=== PATIENT | female | born 1965 | race African-American/Black ===

== ENCOUNTER 2019-01-10 21:33 | Inpatient (IN) | payer BC ==
[~2019-01-10] VITALS: Ht 170.2 cm; Wt 95.0 kg
[2019-01-10] MEDS ORDERED: LISINOPRIL10 MG PO (21:48)
[2019-01-10] MEDS ORDERED: BP MED (21:48)
[2019-01-10] MEDS ORDERED: PROTONIX20 MG (21:48)
[2019-01-10] MEDS ORDERED: NORVASC2.5 MG (21:48)
[2019-01-10] MEDS ORDERED: CARAFATE1 G (21:48)
[2019-01-11] VITALS (26 sets, daily range): BP systolic 100–177; BP diastolic 51–100; Ht 170.2 cm; Wt 95.0 kg
[2019-01-11 00:34] LABS: HEMATOCRIT 23.5 % (36.0-48.0)
[2019-01-11 00:39] LABS: HEMOGLOBIN 7.5 g/dL (12-16)
--- NOTE | 2019-01-11 01:15 | NUR ---
BLOOD STARTED BY GREER ACOSTA.
--- NOTE | 2019-01-11 01:25 | NUR ---
PT ARRIVED FROM ED VIA WHEELCHAIR. VSS. DENIES PAIN, NAUSEA. BILATERAL PIV WITH PRBC INFUSING. TRANSFERRED TO BED WITH ASSISTANCE.
--- NOTE | 2019-01-11 03:31 | NUR ---
REASSESSMENT COMPLETED PER FLOW SHEET, SEE FOR DETAILS. DENIES NEEDS. CALM AND WATCHING TV. WILL CONTINUE TO MONITOR.
--- NOTE | 2019-01-11 04:09 | NUR ---
CALLED AND SPOKE TO FLORENCIO FROM LABORATORY TO INFORM HER OF ORDERS TO DRAW BLOOD FOR AM LABS, SHE STATED SHE WOULD GET SOMEONE TO COME UP TO UNIT.
--- NOTE | 2019-01-11 05:00 | NUR ---
RESTING, DENIES NEEDS, CALL LIGHT WITHIN REACH. WILL CONTINUE TO MONITOR.
--- NOTE | 2019-01-11 05:40 | NUR ---
BLOOD HAS STILL NOT BEEN DRAWN FOR AM LABS, CALLED LABORATORY, NO ANSWER. WILL TRY AGAIN.
--- NOTE | 2019-01-11 06:07 | NUR ---
SPOKE TO FLORENCIO FROM LABORATORY INFORMED HER THAT NO ONE HAS COME UP TO DRAW PATIENT'S BLOOD, SHE STATED SHE WILL GET SOMEONE TO COME UP TO DRAW BLOOD.
--- NOTE | 2019-01-11 06:19 | NUR ---
LABORATORY PERSONNEL HERE TO DRAW BLOOD.
[2019-01-11 06:35] LABS: BASOPHILS 0.2 % (0-2); EOSINOPHILS 0.6 % (0-7); HEMATOCRIT 25.7 % (36.0-48.0); HEMOGLOBIN 8.2 g/dL (12-16); IMMATURE GRANULOCYTES 0.6 % (0-5); LYMPHOCYTES 33.7 % (15-50); MCH 25.2 pg (26.0-34.0); MCHC 31.9 g/dL (31.0-37.0); MCV 78.8 fL (80.0-100.0); MEAN PLATELET VOLUME 9.9 fL (7.4-10.4); MONOCYTES 7.3 % (2-11); NEUTROPHILS 57.6 % (40-80); PLATELET COUNT 330 10x3/uL (130-400); RBC 3.26 10x6/uL (4.00-5.40); RDW 17.6 % (11.5-14.5); WBC 12.2 10x3/uL (4.8-10.8)
[2019-01-11 06:48] LABS: CALC OSMOLALITY 283 mosm/kg (275-300); CALCIUM 7.9 mg/dL (8.5-10.1); CARBON DIOXIDE 26.9 mmol/L (21.0-32.0); CHLORIDE - SERUM 108 mmol/L (98-107); CREATININE - SERUM 0.7 mg/dL (0.6-1.3); GLUCOSE 102 mg/dL (74-106); SODIUM 143 mmol/L (136-145); UREA NITROGEN 9 mg/dL (7-18); eGFR NON AFRICAN AMERICAN > 90 mL/min (90-120)
[2019-01-11 06:55] LABS: POTASSIUM - SERUM 2.9 mmol/L (3.5-5.1)
--- NOTE | 2019-01-11 07:07 | NUR ---
DR. GALICIA RETURNED CALL, NEW ORDERS RECEIVED. SEE ORDERS FOR DETAILS. INFORMED DAY SHIFT NURSE OF NEW ORDERS.
[2019-01-11 08:07] LABS: APTT 26.3 SECONDS (22.8-39.4); INR 1.14 (0.85-1.17); PROTIME 14.1 SECONDS (11.6-15.0)
[2019-01-11 08:40] LABS: APPEARANCE CLEAR (CLEAR); BILIRUBIN NEGATIVE (NEGATIVE); COLOR YELLOW (YELLOW); GLUCOSE NEGATIVE (NEGATIVE); KETONE NEGATIVE (NEGATIVE); NITRITE NEGATIVE (NEGATIVE); PROTEIN NEGATIVE (NEGATIVE); SPECIFIC GRAVITY 1.015 (1.005-1.020); UROBILINOGEN NORMAL (NORMAL)
--- NOTE | 2019-01-11 09:12 | NUR ---
0700 PT RECIEVED ALERT AND ORIENTED VSS HR SINUS 55-60S, ON ROOM AIR, PIV SL TO RFA, PIV TO LUE WITH PROTONIX GTT AND NS INFUSING PER ORDERS, ABD SOFT, NONTENDER, NO BM AT THIS TIME, CONTINENT, AWAITING PRBCS FROM LAB,CALL LIGHT WITHIN REACH 0800 DR GALICIA IN UNIT SPOKE WITH PT REGUARDING EGD AND CARE, KCL INITIATED PER PROTOCOL, DR GALICIA AWARE OF K LEVEL 0830 PRBCS INITATED RUNNING SLOWLY PER DR GALICIA 0900 CONSENTS FOR EGD WITH TIVA SIGNED BY PT, DENIES ANY NEEDS AT THIS TIME, NO SIGNS OF TRANSFUSION REACTION
--- NOTE | 2019-01-11 11:53 | NUR ---
SECOND UNIT PRBCS INITIATED
--- NOTE | 2019-01-11 13:18 | MORECARE ---
CASE MANAGEMENT DISCHARGE SUMMARY PATIENT: EDMAR JOHNSON UNIT: [id number] ADM DATE: 01/10/19 AGE: 53 : 69 SEX: F [facility] AUTHOR: MOLLY,DOC PHYSICIAN: REFERRING PHYSICIAN: JUDY HARKINS MD DATE OF SERVICE: 01/11/19 Discharge Plan Patient Name: EDMAR JOHNSON Facility: [facility]:[place] : 1965 Planned Disposition: Home Anticipated Discharge Date: Discharge Date: Expected LOS: Initial Reviewer: [email or web address] Initial Review Date: 01/11/2019 Generated: 01/11/19 2:18 pm Comments DCP- Discharge Planning Updated by [email or web address]: Farrah Renee on 01/11/19 12:[address] Patient Name: EDMAR JOHNSON Admission Status: ER Accout number: [id number] Admission Date: 01-10-2019 : 1965 Admission Diagnosis: Attending: JUDY HARKINS Current LOS: 1 Anticipated DC Date: Planned Disposition: Home Primary Insurance: [employer] [place] PPO Discharge Planning Comments: CM met with patient at bedside. Patient states she lives at home with her and plans to return to their home upon discharge. Patient denies any discharge needs at this time. CM will continue to follow and assist as needed with discharge planning / needs. Horse Racer: Farrah Renee DCPIA - Discharge Planning Initial Assessment Updated by [email or web address]: Farrah Renee on 01/11/19 1:12 pm * Is the patient Alert and Oriented? Yes * How many steps to enter\exit or inside your home? * PCP DR. GEOFFREY ELISE * Pharmacy [facility] * Preadmission Environment Home with Family * ADLs Independent * Equipment None * List name and contact numbers for known caregivers / representatives who currently or will assist patient after discharge: REJI JOHNSON -- [phone] * Verbal permission to speak to the caregivers and representatives has been obtained from the patient. N/A * Community resources currently utilized None * Additional services required to return to the preadmission environment? No * Can the patient safely return to the preadmission environment? Yes * Has this patient been hospitalized within the prior 30 days at any hospital? No Patient Name: EDMAR JOHNSON Page [id number] at 1318 All edits/amendments must be made on the electronic document DICTATION DATE: 01/11/191317 AUTO BRAKE TECHNICIAN: EMMETT 01/11/191317 RPT#: [id number] DC DATE: STATUS: ADM IN [facility] [address] [place] [address] END OF REPORT
--- NOTE | 2019-01-11 13:26 | NUR ---
GI LAB STAFF HERE FOR EGD, PREOP MEDS GIVEN
--- NOTE | 2019-01-11 15:16 | NUR ---
SPOKE WITH PHARMACY FOR JACKY
--- NOTE | 2019-01-11 16:34 | NUR ---
DR WATERS PAGED AFTER PT NOTED TO HAVE BM WITH SMALL AMOUNT OF BRIGHT RED BLOOD AND ABD DISCOMFORT, ORDERS FOR [place]LANTA, BATH AND LINEN CHANGE DONE, WILL CONTINUE TO MONITOR
--- NOTE | 2019-01-11 17:14 | NUR ---
ATE 50% CLEAR LIQUID TRAY
--- NOTE | 2019-01-11 17:48 | NUR ---
DESPITE MUCH ENCOURAGEMENT PT HAS DRANK ONE GLASS OF GOLYTELY, ENCOURAGED AND IMPORTANCE OF MED EXPLAINED AND PT STATED "ILL DRINK WHAT I WANT AND ITLL HAVE TO DO BECAUSE ITS NASTY"
[2019-01-11 17:51] LABS: HEMATOCRIT 32.6 % (36.0-48.0); HEMOGLOBIN 10.7 g/dL (12-16)
--- NOTE | 2019-01-11 18:49 | NUR ---
DR WATERS NOTIFIED OF H&H AND THAT WITH GOLYTLY SHE HAS HAD SMALL AMOUNT OF BLOOD IN STOOL, OKAYED WITH NO NEW ORDERS
[2019-01-12 01:00] VITALS: BP 154/89
[2019-01-12 01:08] LABS: HEMATOCRIT 31.7 % (36.0-48.0); HEMOGLOBIN 10.5 g/dL (12-16)
[2019-01-12 02:01] VITALS: BP 130/74
[2019-01-12 06:06] LABS: BASOPHILS 0.3 % (0-2); EOSINOPHILS 1.1 % (0-7); HEMATOCRIT 31.5 % (36.0-48.0); HEMOGLOBIN 10.4 g/dL (12-16); IMMATURE GRANULOCYTES 0.6 % (0-5); LYMPHOCYTES 31.1 % (15-50); MCH 26.1 pg (26.0-34.0); MCV 79.1 fL (80.0-100.0); MEAN PLATELET VOLUME 10.1 fL (7.4-10.4); MONOCYTES 8.7 % (2-11); NEUTROPHILS 58.2 % (40-80); PLATELET COUNT 324 10x3/uL (130-400); RDW 17.1 % (11.5-14.5); WBC 10.5 10x3/uL (4.8-10.8)
[2019-01-12 06:15] LABS: RBC 3.98 10x6/uL (4.00-5.40)
[2019-01-12 06:18] VITALS: BP 129/79
[2019-01-12 06:18] LABS: CALC OSMOLALITY 277 mosm/kg (275-300); CALCIUM 7.7 mg/dL (8.5-10.1); CARBON DIOXIDE 23.6 mmol/L (21.0-32.0); CHLORIDE - SERUM 107 mmol/L (98-107); CREATININE - SERUM 0.5 mg/dL (0.6-1.3); GLUCOSE 95 mg/dL (74-106); POTASSIUM - SERUM 3.1 mmol/L (3.5-5.1); SODIUM 141 mmol/L (136-145); UREA NITROGEN 4 mg/dL (7-18)
[2019-01-12 06:19] LABS: eGFR NON AFRICAN AMERICAN > 90 mL/min (90-120)
[2019-01-12 07:00] VITALS: BP 139/59
[2019-01-12 10:26] LABS: HEMATOCRIT 31.7 % (36.0-48.0); HEMOGLOBIN 10.5 g/dL (12-16)
[2019-01-12 11:00] VITALS: BP 158/94
--- NOTE | 2019-01-12 11:18 | NUR ---
Nutrition Follow Up: Chart reviewed Diet: Clear Liquid BM: 01/12/19 Wt loss noted I>O Labs and meds reviewed Rec advancing PAIGE as medically feasible. RD following.
--- NOTE | 2019-01-12 12:39 | NUR ---
TRANSFERRED TO ROOM 1204 VIA WHEELCHAIR.
[2019-01-12] MEDS ORDERED: LOPRESSOR25 MG PO (12:56)
--- NOTE | 2019-01-12 13:45 | NUR ---
SWELLING NOTED TO IV TO LEFT UPPER ARM. SL TO R FA PATENT WITH BRUISING NOTED AROUND INSERTION SITE. IVF SWITCHED TO R FA SL. IV TO L UPPER ARM REMOVED. CATHETER TIP INTACT. AWAITING COLONOSCOPY LATER TODAY. FAMILY AT BEDSIDE. DENIES ANY NEEDS AT THIS TIME.
--- NOTE | 2019-01-12 15:30 | NUR ---
OFF FLOOR TO GI LAB VIA BED.
--- NOTE | 2019-01-12 17:20 | NUR ---
RETURNED TO ROOM FROM GI LAB. IV TO L HAND PATENT. VSS. DENIES ANY NEEDS AT THIS TIME.
--- NOTE | 2019-01-12 21:00 | NUR ---
PT SITTING UP IN BED, NO SIGNS OF DISTRESS. ALERT AND ORIENTED. IV LEFT HAND INFUSING NS @ 50. NO REDNESS OR SWELLING AT INSERTION SITE, DRESSING CDI. DENIES NEEDS OR COMPLAINTS AT THIS TIME. CL IN REACH,WILL CONT TO MONITOR
[2019-01-12 21:14] VITALS: BP 160/99
[2019-01-13] VITALS: BP 155/87
[2019-01-13 04:00] VITALS: BP 143/82
[2019-01-13 06:46] LABS: BASOPHILS 0.2 % (0-2); EOSINOPHILS 1.5 % (0-7); HEMOGLOBIN 10.6 g/dL (12-16); IMMATURE GRANULOCYTES 0.4 % (0-5); LYMPHOCYTES 27.7 % (15-50); MCH 26.3 pg (26.0-34.0); MCHC 33.1 g/dL (31.0-37.0); MCV 79.4 fL (80.0-100.0); MEAN PLATELET VOLUME 9.8 fL (7.4-10.4); MONOCYTES 9.2 % (2-11); RBC 4.03 10x6/uL (4.00-5.40); RDW 17.2 % (11.5-14.5); WBC 9.1 10x3/uL (4.8-10.8)
[2019-01-13 06:55] LABS: PLATELET COUNT 399 10x3/uL (130-400)
[2019-01-13 07:07] LABS: CALC OSMOLALITY 274 mosm/kg (275-300); CALCIUM 8.2 mg/dL (8.5-10.1); CARBON DIOXIDE 25.3 mmol/L (21.0-32.0); CHLORIDE - SERUM 104 mmol/L (98-107); GLUCOSE 101 mg/dL (74-106); SODIUM 139 mmol/L (136-145); UREA NITROGEN 5 mg/dL (7-18)
[2019-01-13 07:08] LABS: CREATININE - SERUM 0.7 mg/dL (0.6-1.3); eGFR NON AFRICAN AMERICAN > 90 mL/min (90-120)
[2019-01-13 07:53] VITALS: BP 128/80
[2019-01-13] MEDS ORDERED: FLAGYL500 MG PO (08:13)
[2019-01-13] MEDS ORDERED: PROTONIX40 MG PO (08:14)
[2019-01-13] MEDS ORDERED: ANUSOL-HC25 MG RC (08:14)
--- NOTE | 2019-01-13 09:26 | NUR ---
PT SITTING UP EATING BREAKFAST. A/O X 4. UP AB TRINY. VITALS STABLE. TOOK MEDS WITHOUT DIFFICULTY. ROOM AIR. L HAND IV WITH NS @ 50 CC/HR. DENIES PAIN AT THIS TIME. DC ORDERS PLACED. PT ON REGULAR DIET. TOLERATED WITHOUT PROBLEMS. NO FURTHER CONERNS AT THIS TIME. BED LOWERED AND LOCKED. CL IN REACH. WILL CPOC.
--- NOTE | 2019-01-13 12:03 | NUR ---
PT AOX4 RESP EVEN AND NONLABORED PT DENIES NEEDS AT THIS TIME WILL CONTINUE TO MONITOR CONTINUE POC
--- NOTE | 2019-01-13 14:04 | NUR ---
PT ANXIOUS ABOUT DC. CALLED [facility]. STATED SHE WOULD WORK ON DC NOW SINCE PT TOLERATED LUNCH OKAY
--- NOTE | 2019-01-13 15:29 | NUR ---
DC GIVEN TO PC. PT AGREED WITH DC. IV REMOVED. TIP INTACT.
--- NOTE | 2019-01-13 15:29 | NUR ---
PT DC HOME VIA WHEELCHAIR VIA PERSONAL CAR WITH FAMILY
--- NOTE | 2019-01-16 14:41 | MORECARE ---
CASE MANAGEMENT DISCHARGE SUMMARY PATIENT: EDMAR JOHNSON UNIT: [id number] ADM DATE: 01/10/19 AGE: 53 : 69 SEX: F ROOM/BED: D.1204 AUTHOR: MOLLY,DOC PHYSICIAN: REFERRING PHYSICIAN: JUDY HARKINS MD DATE OF SERVICE: 01/16/19 Discharge Plan Patient Name: EDMAR JOHNSON Facility: [facility]:[place] : 1965 Planned Disposition: Home Anticipated Discharge Date: Discharge Date: 01/13/2019 Expected LOS: Initial Reviewer: [email or web address] Initial Review Date: 01/11/2019 Generated: 01/16/19 3:40 pm DCP- Discharge Planning Updated by [email or web address]: Farrah Renee on 01/11/19 12:[address] Patient Name: EDMAR JOHNSON Admission Status: ER Accout number: [id number] Admission Date: 01-10-2019 : 1965 Admission Diagnosis: Attending: JUDY HARKINS Current LOS: 1 Anticipated DC Date: Planned Disposition: Home Primary Insurance: [employer] Discharge Planning Comments: CM met with patient at bedside. Patient states she lives at home with her and plans to return to their home upon discharge. Patient denies any discharge needs at this time. CM will continue to follow and assist as needed with discharge planning / needs. Reinforcing Steel Worker Wire Mesh: Farrah Renee DCPIA - Discharge Planning Initial Assessment Updated by [email or web address]: Farrah Renee on 01/11/19 1:12 pm * Is the patient Alert and Oriented? Yes * How many steps to enter\exit or inside your home? * PCP DR. GEOFFREY ELISE * Pharmacy [facility] * Preadmission Environment Home with Family * ADLs Independent * Equipment None * List name and contact numbers for known caregivers / representatives who currently or will assist patient after discharge: REJI JOHNSON -- [phone] * Verbal permission to speak to the caregivers and representatives has been obtained from the patient. N/A * Community resources currently utilized None * Additional services required to return to the preadmission environment? No * Can the patient safely return to the preadmission environment? Yes * Has this patient been hospitalized within the prior 30 days at any hospital? No Last DP export: 01/11/19 12:18 p Patient Name: EDMAR JOHNSON Page [phone] at 1441 All edits/amendments must be made on the electronic document DICTATION DATE: 01/16/191439 TRANSPORTATION ANALYST: EMMETT 01/16/19 1440 RPT#: [id number] DC DATE:01/13/19 STATUS: DIS IN [facility] [address] [place] [address] END OF REPORT
== END 2019-01-13 15:30 | disposition home or self-care (01) | DRG 378 ==
LOC: D.ER 21:33 → D.CVICU 22:22 → D.M3 01-12 12:41
PROVIDERS: Emergency Medicine; Internal Medicine Gastroenterology; ADMIT Internal Medicine Nephrology; ATTEND Internal Medicine Nephrology
PROC: 0DB78ZX Excision of Stomach, Pylorus, Via Natural or Artificial Opening Endoscopic, Diagnostic (ICD-10-PCS; principal; 2019-01-11 13:42)
PROC: 0DJD8ZZ Inspection of Lower Intestinal Tract, Via Natural or Artificial Opening Endoscopic (ICD-10-PCS; 2019-01-12)
DX: K57.31 Diverticulosis of large intestine without perforation or abscess with bleeding (principal); D62 Acute posthemorrhagic anemia; K29.71 Gastritis, unspecified, with bleeding; E87.6 Hypokalemia; I10 Essential (primary) hypertension; K44.9 Diaphragmatic hernia without obstruction or gangrene; K64.8 Other hemorrhoids; K27.4 Chronic or unspecified peptic ulcer, site unspecified, with hemorrhage